=== PATIENT | female | born 1990 | race Caucasian/White ===

== ENCOUNTER 2021-06-17 21:01 | Emergency (ER) | payer MEDICAID ==
[~2021-06-17] VITALS: Ht 157.5 cm; Wt 72.6 kg
--- NOTE | 2021-06-17 21:22 | NUR ---
TO ER BED 13. C/O OF WEAKNESS AND CHILLS SINCE 5PM AFTER TAKING TYLENOL 600MG S/P DENTAL PROCEDURE. DENIES ANY CHEST PAIN. NOT IN RESPIRATORY DISTRESS. CONNECTED AL TO MONITOR. AWAITNG MD BISHOP
--- NOTE | 2021-06-17 21:32 | NUR ---
IV CANNULA G20 INSERTED ON RIGHT AC. BLOOD DRAWN AND SENT TO LAB
[2021-06-17] MEDS ORDERED: ONDANSETRON HCL/PF 4 MG/2 ML VIAL ONE (22:27)
[2021-06-17] MEDS ORDERED: IV NS 0.9% 1,000 ML BAG IV ONE (22:30)
[2021-06-17] MEDS ORDERED: ONDANSETRON HCL/PF 4 MG/2 ML VIAL IVP ONE (22:30)
--- NOTE | 2021-06-17 22:59 | NUR ---
ACCUCHECK 88
--- NOTE | 2021-06-17 22:59 | NUR ---
PT STATES SHE HAS A HEADACHE PAIN 8/10 ON P/S. MD MADE AWARE. WILL CONTINUE TO MONITOR
[2021-06-17] MEDS ORDERED: ACETAMINOPHEN 325 MG TABLET ONE (23:56)
[2021-06-18] MEDS ORDERED: ACETAMINOPHEN 325 MG TABLET PO ONE
--- NOTE | 2021-06-18 00:27 | NUR ---
IV removed. Catheter intact and site benign. Pressure and 4x4 applied to site. No bleeding noted.
[2021-06-18 00:28] VITALS: BP 118/84
--- NOTE | 2021-06-18 00:28 | NUR ---
Patient discharged to home in stable condition. Written and verbal after care instructions given. Patient verbalizes understanding of instruction.
== END 2021-06-18 00:35 | disposition home or self-care (01) ==
LOC: ER 21:05
DX: R53.1 Weakness (principal)
CPT/HCPCS: 82962; 96361; 96374; 99283; J2405; J7030